=== PATIENT | female | born 1980 | race African-American/Black ===

== ENCOUNTER 2017-08-01 06:58 | Emergency (ER) | payer OTHER ==
--- NOTE | 2017-08-01 07:59 | ER ---
Nurse's Notes [facility] Name: Ronel Murphy Age: 37 yrs Sex: Female : 1980 Arrival Date: 08/01/2017 Time: 06:58 Bed 15 Private MD: Diagnosis: Acute pharyngitis Presentation: 08/01 07:08 Presenting complaint: Patient states: throat burning, L ear pain, nasal drainage, ss chills x 2 weeks. Pt reports her daughter was diagnosed with strep two weeks ago. Pt has had a course of Amoxicillin, but reports it doesn't work and only makes her "go to the restroom". Pt states, "I need a steroid shot.". Transition of care: patient was not received from another setting of care. Onset of symptoms was July 18, 2017. Initial Sepsis Screen: Does the patient meet any 2 criteria? No. Patient's initial sepsis screen is negative. Does the patient have a suspected source of infection? No. Patient's initial sepsis screen is negative. Care prior to arrival: None. 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 - Social history:: Smoking status: Patient/guardian denies using tobacco. - Family history:: not pertinent. Screenin:19 Abuse screen: Denies threats or abuse. Denies injuries from another. Nutritional jl7 screening: No deficits noted. Tuberculosis screening: No symptoms or risk factors identified. Fall Risk None identified. Assessment: 07:19 General: Appears in no apparent distress. uncomfortable, Behavior is calm, cooperative, jl7 appropriate for age. Pain: Complains of pain in bilateral ears, sore throat, headache Pain does not radiate. Pain currently is 7 out of 10 on a pain scale. Neuro: Level of Consciousness is awake, alert, obeys commands, Oriented to person, place, time, situation. Cardiovascular: Heart tones S1 S2 present Patient's skin is warm and dry. Respiratory: Reports cough that is since x 2 weeks, Pt reports "Doctor gave me amoxicillin but all it did was make me go to the bathroom." Airway is patent Respiratory effort is even, unlabored, Respiratory pattern is regular, symmetrical, Breath sounds are clear bilaterally. GI: No signs and/or symptoms were reported involving the gastrointestinal system. Patient currently denies diarrhea, nausea, vomiting. : No signs and/or symptoms were reported regarding the genitourinary system. EENT: Ear canal clear on right ear and left ear Throat is reddened. Derm: Skin is dry, Skin is normal, Skin temperature is warm. Musculoskeletal: No signs and/or symptoms reported regarding the musculoskeletal system. Vital Signs: 07:13 BP 124 / 83; Pulse 98; Resp 14; Temp 98.0(TE); Pulse Ox 99% on R/A; Weight 86.18 kg; ss Height 5 ft. 5 in. (165.10 cm); 07:13 Body Mass Index 31.62 (86.18 kg, 165.10 cm) ED Course: 06:58 Patient arrived in ED. ds1 07:12 Triage completed. ss 07:13 Arm band placed on right wrist. 07:16 Chago Hernández MD is Attending Physician. [facility] 07:18 Yenifer Curran, KOBY is Primary Nurse. jl7 07:19 Patient has correct armband on for positive identification. Bed in low position. Call jl7 light in reach. Side rails up X 1. Pulse ox on. NIBP on. 08:20 No provider procedures requiring assistance completed. Patient did not have IV access jl7 during this emergency room visit. Administered Medications: 08:15 Drug: Augmentin 875 mg Route: PO; jl7 08:20 Follow up: Response: Medication administered at discharge. jl7 08:15 Drug: Decadron 4 mg Route: PO; jl7 08:20 Follow up: Response: Medication administered at discharge. jl7 Outcome: 07:58 Discharge ordered by . fady 08:20 Discharged to home ambulatory. jl7 08:20 Condition: stable 08:20 Discharge instructions given to patient, Instructed on discharge instructions, follow up and referral plans. medication usage, Demonstrated understanding of instructions, follow-up care, medications, Prescriptions given X 3. 08:21 Patient left the ED. jl7 Signatures: Chago Hernández MD MD cha Sanford, Demi ds1 Cortney Kaur, RN RN ss Yenifer Curran RN RN jl7
--- NOTE | 2017-08-01 07:59 | EDPHYS ---
Physician Documentation [facility] Name: Ronel Murphy Age: 37 yrs Sex: Female : 1980 Arrival Date: 08/01/2017 Time: 06:58 Bed 15 Private MD: ED Physician Chago Hernández HPI: 08/01 07:48 This 37 yrs old Black Female presents to ER via Ambulatory with complaints of Sore fady Throat, Ear Pain. 07:48 The patient presents with sore throat. The patient describes throat pain as burning, fady constant. Onset: The symptoms/episode began/occurred 2 week(s) ago. Severity of symptoms: At their worst the symptoms were. Modifying factors: The symptoms are alleviated by nothing. Associated signs and symptoms: The patient has no apparent associated signs or symptoms. The patient has not experienced similar symptoms in the past. 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 - Social history:: Smoking status: Patient/guardian denies using tobacco. - Family history:: not pertinent. ROS: 07:48 Constitutional: Negative for fever, chills, and weight loss, Eyes: Negative for injury, fady pain, redness, and discharge, Neck: Negative for injury, pain, and swelling, Cardiovascular: Negative for chest pain, palpitations, and edema, Respiratory: Negative for shortness of breath, cough, wheezing, and pleuritic chest pain, Abdomen/GI: Negative for abdominal pain, nausea, vomiting, diarrhea, and constipation, Back: Negative for injury and pain, : Negative for injury, bleeding, discharge, and swelling, MS/Extremity: Negative for injury and deformity, Skin: Negative for injury, rash, and discoloration, Neuro: Negative for headache, weakness, numbness, tingling, and seizure, Psych: Negative for depression, anxiety, suicide ideation, homicidal ideation, and hallucinations, Allergy/Immunology: Negative for hives, rash, and allergies, Endocrine: Negative for neck swelling, polydipsia, polyuria, polyphagia, and marked weight changes, Hematologic/Lymphatic: Negative for swollen nodes, abnormal bleeding, and unusual bruising. 07:48 ENT: Positive for nasal discharge, pulling at ears, sore throat. Exam: 07:48 Constitutional: This is a well developed, well nourished patient who is awake, alert, fady and in no acute distress. Head/Face: Normocephalic, atraumatic. Eyes: Pupils equal round and reactive to light, extra-ocular motions intact. Lids and lashes normal. Conjunctiva and sclera are non-icteric and not injected. Cornea within normal limits. Periorbital areas with no swelling, redness, or edema. Neck: Trachea midline, no thyromegaly or masses palpated, and no cervical lymphadenopathy. Supple, full range of motion without nuchal rigidity, or vertebral point tenderness. No Meningismus. Chest/axilla: Normal chest wall appearance and motion. Nontender with no deformity. No lesions are appreciated. Cardiovascular: Regular rate and rhythm with a normal S1 and S2. No gallops, murmurs, or rubs. Normal PMI, no JVD. No pulse deficits. Respiratory: Lungs have equal breath sounds bilaterally, clear to auscultation and percussion. No rales, rhonchi or wheezes noted. No increased work of breathing, no retractions or nasal flaring. Abdomen/GI: Soft, non-tender, with normal bowel sounds. No distension or tympany. No guarding or rebound. No evidence of tenderness throughout. Back: No spinal tenderness. No costovertebral tenderness. Full range of motion. Skin: Warm, dry with normal turgor. Normal color with no rashes, no lesions, and no evidence of cellulitis. MS/ Extremity: Pulses equal, no cyanosis. Neurovascular intact. Full, normal range of motion. Neuro: Awake and alert, GCS 15, oriented to person, place, time, and situation. Cranial nerves II-XII grossly intact. Motor strength 5/5 in all extremities. Sensory grossly intact. Cerebellar exam normal. Normal gait. Psych: Awake, alert, with orientation to person, place and time. Behavior, mood, and affect are within normal limits. 07:48 ENT: Posterior pharynx: swelling, that is mild, erythema, that is mild. Vital Signs: 07:13 BP 124 / 83; Pulse 98; Resp 14; Temp 98.0(TE); Pulse Ox 99% on R/A; Weight 86.18 kg; ss Height 5 ft. 5 in. (165.10 cm); 07:13 Body Mass Index 31.62 (86.18 kg, 165.10 cm) ss MDM: 07:16 Patient medically screened. [facility] 19:04 Data reviewed: vital signs, nurses notes. [facility] Administered Medications: 08:15 Drug: Augmentin 875 mg Route: PO; [facility] 08:20 Follow up: Response: Medication administered at discharge. [facility] 08:15 Drug: Decadron 4 mg Route: PO; [facility] 08:20 Follow up: Response: Medication administered at discharge. [facility] Disposition: 08/01/17 07:58 Discharged to Home. Impression: Acute pharyngitis. - Condition is Stable. - Discharge Instructions: Pharyngitis, Pharyngitis, [id number], Sore Throat, [id number]. - Prescriptions for Augmentin 875- 125 mg Oral Tablet - take 1 tablet by ORAL route every 12 hours for 10 days; 20 tablet. Christine- D 12 Hour 60-120 mg Oral Tablet Sustained Release 12 hr - take 1 tablet by ORAL route every 12 hours As needed; 20 tablet. Medrol (Tye) 4 mg Oral Tablets, Dose Pack - take 1 tablet by ORAL route as directed - follow package instructions; 1 packet. - Medication Reconciliation Form, Thank You Letter, Antibiotic Education, Prescription Opioid Use form. - Follow up: Private Physician; When: 2 - 3 days; Reason: Recheck today's complaints, Continuance of care, Re-evaluation by your physician. - Problem is new. - Symptoms have improved. Signatures: Chago Hernández MD MD cha Smirch, Shelby, RN RN Yenifer Curran RN RN jl7
[2017-08-01] MEDS ORDERED: AMOX/K CLAV 875 MG TAB ONE (08:15)
[2017-08-01] MEDS ORDERED: DEXAMETHASONE 4 MG TAB ONE (08:15)
[2017-08-01 08:26] VITALS: BP 124/83; TEMP 98; O2SAT 99
== END 2017-08-01 08:21 | disposition home or self-care (01) ==
LOC: ER 06:58
DX: J02.9 Acute pharyngitis, unspecified (principal)
CPT/HCPCS: 99283

== ENCOUNTER 2020-11-09 08:33 | Emergency (ER) | payer OTHER ==
[2020-11-09] MEDS ORDERED: ACETAMINOPHEN 500 MG TAB ONE (10:42)
--- NOTE | 2020-11-09 12:05 | ER ---
Nurse's Notes [facility] Name: Ronel Murphy Age: 40 yrs Sex: Female : 1980 Arrival Date: 11/09/2020 Time: 08:36 Bed 30 Private MD: Diagnosis: Influenza due to other identified influenza virus with other respiratory manifestations;SARS-associated coronavirus as the cause of diseases classified elsewhere Presentation: 11/09 08:59 Chief complaint: Patient states: sore throat, ear pain and headache that began 6 days ss ago. Recent exposure to covid. Employer wants her to be tested for covid. Coronavirus screen: Client denies travel out of the [place] in the last 14 days. Ebola Screen: Patient denies exposure to infectious person. Patient denies travel to an Ebola-affected area in the 21 days before illness onset. Initial Sepsis Screen: Does the patient meet any 2 criteria? No. Patient's initial sepsis screen is negative. Does the patient have a suspected source of infection? No. Patient's initial sepsis screen is negative. Risk Assessment: Do you want to hurt yourself or someone else? Patient reports no desire to harm self or others. Onset of symptoms was November 03, 2020. 08:59 Method Of Arrival: Ambulatory ss 08:59 Acuity: RUDDY 4 ss Historical: - Allergies: 09:01 Augmentin; ss 09:01 steroids; ss 09:01 Sulfa (Sulfonamide Antibiotics); ss - Home Meds: 09:01 None [Active]; ss - PMHx: 09:01 None; ss - PSHx: 09:01 None; ss - Immunization history:: Adult Immunizations up to date, Client reports having NOT received the Covid vaccine. - Social history:: Smoking status: Patient reports the use of cigarette tobacco products, denies chronic smoking, but will smoke occasionally. Screenin:10 Abuse screen: Denies threats or abuse. Nutritional screening: No deficits noted. vg1 Tuberculosis screening: No symptoms or risk factors identified. Fall Risk No fall in past 12 months (0 pts). No secondary diagnosis (0 pts). No IV (0 pts). Ambulatory Aid- None/Bed Rest/Nurse Assist (0 pts). Gait- Normal/Bed Rest/Wheelchair (0 pts) Mental Status- Oriented to own ability (0 pts). Total Caldwell Fall Scale indicates No Risk (0-24 pts). Assessment: 10:09 General: Appears in no apparent distress. comfortable, Behavior is calm, cooperative. vg1 Pain: Complains of pain in head, throat, JOSE M ears Pain currently is 8 out of 10 on a pain scale. Pain began about a week ago. Neuro: Level of Consciousness is awake, alert, obeys commands, Oriented to person, place, time, situation, Reports headache. Cardiovascular: Patient's skin is warm and dry. Respiratory: Airway is patent Respiratory effort is even, unlabored, Breath sounds are clear bilaterally. GI: No signs and/or symptoms were reported involving the gastrointestinal system. : No signs and/or symptoms were reported regarding the genitourinary system. EENT: Throat is reddened. Derm: Skin is intact, is healthy with good turgor. Musculoskeletal: Circulation, motion, and sensation intact. 11:30 Reassessment: Patient appears in no apparent distress at this time. No changes from vg1 previously documented assessment. Patient and/or family updated on plan of care and expected duration. Pain level reassessed. Patient is alert, oriented x 3, equal unlabored respirations, skin warm/dry/pink. Vital Signs: 08:59 BP 121 / 90; Pulse 80; Resp 14; Temp 97.8(TE); Pulse Ox 100% on R/A; Weight 81.65 kg; ss Height 5 ft. 5 in. (165.10 cm); Pain 7/10; 10:28 BP 144 / 86; Pulse 90; Resp 16; Pulse Ox 100% ; vg1 11:30 BP 128 / 95; Pulse 88; Resp 16; Pulse Ox 99% ; vg1 08:59 Body Mass Index 29.95 (81.65 kg, 165.10 cm) ED Course: 08:36 Patient arrived in ED. as 09:01 Triage completed. 09:01 Arm band placed on right wrist. 09:59 Mary Kate Rowe, KOBY is Primary Nurse. 1 10:01 Chago Chaney PA is PHCP. cp 10:01 Vladimir Harris MD is Attending Physician. cp 10:10 Patient has correct armband on for positive identification. Bed in low position. Call 1 light in reach. 10:28 COVID swab sent to lab. Flu and/or RSV swab sent to lab. Strep swab sent to lab. vg1 12:22 No provider procedures requiring assistance completed. Patient did not have IV access vg1 during this emergency room visit. Administered Medications: 10:28 Drug: Tylenol 1000 mg Route: PO; vg1 12:22 Follow up: Response: No adverse reaction; Pain is decreased vg1 Outcome: 12:04 Discharge ordered by . kaitlyn 12:22 Discharged to home ambulatory. vg1 12:22 Condition: stable 12:22 Discharge instructions given to patient, Instructed on discharge instructions, follow up and referral plans. medication usage, Demonstrated understanding of instructions, follow-up care, medications, Prescriptions given X 1. 12:23 Patient left the ED. vg1 Signatures: Trena Diana Shelby, RN RN Chago White PA PA cp Garcia, Victoria, RN RN vg1
--- NOTE | 2020-11-09 12:05 | EDPHYS ---
Physician Documentation [facility] Name: Ronel Murphy Age: 40 yrs Sex: Female : 1980 Arrival Date: 11/09/2020 Time: 08:36 Bed 30 Private MD: ED Physician Vladimir Harris HPI: 11/09 10:20 This 40 yrs old Black Female presents to ER via Ambulatory with complaints of Headache, cp Cough, Fever. 10:20 The patient or guardian reports cough, that is intermittent, fever, headache, body cp aches. 10:20 Onset: The symptoms/episode began/occurred 6 day(s) ago. Severity of symptoms: in the emergency department the symptoms are unchanged, despite home interventions. Associated signs and symptoms: Pertinent negatives: chest pain, diarrhea, vomiting. Patient reports close contact with family member who recently tested positive for COVID-19. Historical: - Allergies: 09:01 Augmentin; ss 09:01 steroids; ss 09:01 Sulfa (Sulfonamide Antibiotics); ss - Home Meds: 09:01 None [Active]; ss - PMHx: 09:01 None; ss - PSHx: 09:01 None; ss - Immunization history:: Adult Immunizations up to date, Client reports having NOT received the Covid vaccine. - Social history:: Smoking status: Patient reports the use of cigarette tobacco products, denies chronic smoking, but will smoke occasionally. ROS: 10:30 Constitutional: Positive for body aches, Negative for fever, poor PO intake. cp 10:30 Eyes: Negative for injury, pain, redness, and discharge. cp 10:30 ENT: Positive for sore throat, Negative for drainage from ear(s), ear pain, difficulty swallowing, difficulty handling secretions. 10:30 Cardiovascular: Negative for chest pain. 10:30 Respiratory: Positive for cough, with no reported sputum, Negative for shortness of breath, wheezing. 10:30 Abdomen/GI: Negative for abdominal pain, vomiting, diarrhea, constipation. 10:30 : Negative for urinary symptoms. 10:30 Skin: Negative for rash. 10:30 Neuro: Positive for headache, Negative for altered mental status, dizziness, weakness. 10:30 All other systems are negative. Exam: 10:35 Constitutional: The patient appears in no acute distress, alert, awake, non-toxic, well cp developed, well nourished. 10:35 Head/Face: Normocephalic, atraumatic. cp 10:35 Eyes: Periorbital structures: appear normal, Conjunctiva: normal, no exudate, no injection, Sclera: no appreciated abnormality, Lids and lashes: appear normal, bilaterally. 10:35 ENT: External ear(s): are unremarkable, Ear canal(s): are normal, clear, TM's: bulging, is not appreciated, bilaterally, dullness, bilaterally, erythema, is not appreciated, bilaterally, Nose: is normal, Mouth: Lips: moist, Oral mucosa: moist, Posterior pharynx: Airway: no evidence of obstruction, patent, Tonsils: with erythema, no enlargement, no exudate, erythema, that is mild, exudate, is not appreciated. 10:35 Neck: ROM/movement: is normal, is supple, no meningismus, no nuchal rigidity, Lymph nodes: no appreciated lymphadenopathy. 10:35 Chest/axilla: Inspection: normal. 10:35 Cardiovascular: Rate: normal, Rhythm: regular. 10:35 Respiratory: the patient does not display signs of respiratory distress, Respirations: normal, no use of accessory muscles, no retractions, labored breathing, is not present, Breath sounds: are clear throughout, no decreased breath sounds, no stridor, no wheezing. 10:35 Abdomen/GI: Exam negative for discomfort, distension, guarding, Inspection: abdomen appears normal. 10:35 Skin: no rash present. Vital Signs: 08:59 BP 121 / 90; Pulse 80; Resp 14; Temp 97.8(TE); Pulse Ox 100% on R/A; Weight 81.65 kg; ss Height 5 ft. 5 in. (165.10 cm); Pain 7/10; 10:28 BP 144 / 86; Pulse 90; Resp 16; Pulse Ox 100% ; vg1 11:30 BP 128 / 95; Pulse 88; Resp 16; Pulse Ox 99% ; vg1 08:59 Body Mass Index 29.95 (81.65 kg, 165.10 cm) ss MDM: 10:09 Patient medically screened. cp 11:00 Differential Diagnosis: Bronchitis Influenza Upper Respiratory Infection Sinusitis cp Otitis Media Pneumonia. 12:04 Data reviewed: vital signs, nurses notes, lab test result(s). cp 12:04 Counseling: I had a detailed discussion with the patient and/or guardian regarding: the cp historical points, exam findings, and any diagnostic results supporting the discharge/admit diagnosis, lab results, to return to the emergency department if symptoms worsen or persist or if there are any questions or concerns that arise at home. ED course: VSS. Discussed results of labs that returned positive for influenza and COVID-19. Patient appears non-toxic and no signs of respiratory distress. Will discharge to home for continued monitoring. 11/09 10:09 Order name: Strep; Complete Time: 10:56 cp 11/09 10:09 Order name: Influenza Screen (a \T\ B); Complete Time: 10:56 cp 11/09 10:56 Interpretation: Abnormal: FLUB FLU B ----- POSITIVE for FLU B protein antigen. cp 11/09 10:55 Order name: Throat Culture EDMS Administered Medications: 10: Drug: Tylenol 1000 mg Route: PO; vg1 12:22 Follow up: Response: No adverse reaction; Pain is decreased vg1 Disposition Summary: 11/09/20 12:04 Discharge Ordered Location: Home cp Problem: new cp Symptoms: have improved cp Condition: Stable cp Diagnosis - Influenza due to other identified influenza virus with other respiratory cp manifestations - SARS-associated coronavirus as the cause of diseases classified elsewhere cp Followup: cp - With: Private Physician - When: 2 - 3 days - Reason: Worsening of condition Discharge Instructions: - Discharge Summary Sheet cp - Influenza, Adult cp - COVID-19 cp - COVID-19 Frequently Asked Questions cp - 10 Things You Can Do to Manage Your COVID-19 Symptoms at Home - [facility] cp - COVID-19: Quarantine vs. Isolation - [facility] cp - Prevent the Spread of COVID-19 if You Are Sick - CDC cp Forms: - Medication Reconciliation Form cp - Thank You Letter cp - Antibiotic Education cp - Prescription Opioid Use cp - Work release form tw2 Prescriptions: - Tamiflu 75 mg Oral Capsule - take 1 tablet by ORAL route every 12 hours for 5 days; 10 tablet; Refills: 0, cp Product Selection Permitted Addendum: 11/12/2020 07:01 Co-signature as Attending Physician, Vladimir Harris MD. r n Signatures: Dispatcher [employer] EDMI Vladimir Harris MD MD rn Smirch, Shelby, RN RN ss Page, Corey, PA PA cp Jae, Mary Kate, RN RN vg1 Corrections: (The following items were deleted from the chart) 11/09 11:02 09:03 CORONAVIRUS+ ordered. EDMS EDMS
[2020-11-10 09:28] VITALS: TEMP 97.8
[2020-11-10 09:32] VITALS: BP 128/95; O2SAT 99
== END 2020-11-09 12:23 | disposition home or self-care (01) ==
LOC: ER 08:33
DX: U07.1 COVID-19 (principal); J10.1 Influenza due to other identified influenza virus with other respiratory manifestations; F17.210 Nicotine dependence, cigarettes, uncomplicated; Z88.1 Allergy status to other antibiotic agents; Z88.2 Allergy status to sulfonamides; Z88.8 Allergy status to other drugs, medicaments and biological substances
CPT/HCPCS: 87070; 87081; 87804 ×2; 99283; U0003